=== PATIENT | female | born 1995 | race Caucasian/White ===

== ENCOUNTER 2021-07-12 21:27 | Emergency (ER) | payer BC ==
[~2021-07-12] VITALS: Ht 162.6 cm; Wt 65.8 kg
--- NOTE | 2021-07-12 22:00 | NUR ---
First contact with pt. Pt states " I started having sudden chest pain today out of nowhere and the pain is getting worst. Pt sitting in gurney and appears visibly distressed, pt fidgety and unable to sit still. At present supercharger mechanic and fitness technician at bedside attempting an EKG. Pt VSS, awaiting evaluation and furhter orders.
[2021-07-12 22:20] VITALS: BP_SYST 152
[2021-07-12 22:29] VITALS: BP_SYST 141
[2021-07-12] MEDS ORDERED: MORPHINE 2 MG/ML INJ. SYRINGE IVP ONE (22:45)
[2021-07-12] MEDS ORDERED: PROCHLORPERAZINE EDISYLATE 10 MG/2 ML VIAL IVP ONE (22:45)
[2021-07-12] MEDS ORDERED: ASPIRIN 81 MG TAB.CHEW PO ONE (22:45)
[2021-07-12] MEDS ORDERED: KETOROLAC TROMETHAMINE 30 MG VIAL IVP ONE (22:45)
[2021-07-12] MEDS ORDERED: LORazepam 2 MG/ML VIAL IVP ONE (22:45)
[2021-07-12] MEDS ORDERED: NACL 0.9% 1,000 ML IV ONE (22:45)
[2021-07-12 23:35] LABS: BASOPHILS % (AUTO) 0.6 % (0.0-2.0); EOSINOPHILS # (AUTO) 0.1 K/uL (0.0-0.4); EOSINOPHILS % (AUTO) 1.7 % (0.0-4.0); HEMATOCRIT 42.6 % (36-48); HEMOGLOBIN 14.6 g/dL (12.0-16.0); LYMPHOCYTES # (AUTO) 2.4 K/uL (1.0-5.5); LYMPHOCYTES % (AUTO) 32.6 % (20.5-51.5); MEAN CORPUSCULAR HEMOGLOBIN 33 pg (27-31); MEAN CORPUSCULAR HGB CONC 34 % (32-36); MEAN CORPUSCULAR VOLUME 96 fL (79.0-98.0); MONOCYTES # (AUTO) 0.7 K/uL (0.0-1.0); MONOCYTES % (AUTO) 9.9 % (1.7-9.3); NEUTROPHILS # (AUTO) 4.1 K/uL (1.8-7.7); NEUTROPHILS % (AUTO) 55.2 % (40.0-70.0); PLATELET COUNT (AUTO) 343 K/uL (130-430); RED BLOOD CELL COUNT(AUTO) 4.46 MIL/uL (4.2-6.2); RED CELL DISTRIBUTION WIDTH 13.2 % (9.0-15.0); WHITE BLOOD COUNT (AUTO) 7.4 K/uL (4.8-10.8)
--- NOTE | 2021-07-12 23:37 | NUR ---
Pt laying in [facility] quietly. VSS. LALA
[2021-07-13 00:28] LABS: ALANINE AMINOTRANSFERASE 18 U/L (12-78); ALBUMIN 4.2 g/dL (3.4-4.8); ANION GAP 12 (5-15); ASPARTATE AMINOTRANSFERASE 13 U/L (10-37); CALCIUM 8.6 mg/dL (8.4-11.0); CHLORIDE 103 mmol/L (98-107); CREATININE 0.65 mg/dL (0.55-1.30); GLUCOSE 95 mg/dL (70-99); POTASSIUM 3.4 mmol/L (3.5-5.1); SODIUM SERUM 137 mmol/L (136-145); TOTAL BILIRUBIN 0.4 mg/dL (0.0-1.0); UREA NITROGEN, BLOOD 4 mg/dL (8-21)
[2021-07-13 00:32] LABS: GFR AFRICAN AMERICAN 143 mL/min (>90)
[2021-07-13] MEDS ORDERED: ACET12.55 PO (01:06)
[2021-07-13] MEDS ORDERED: NAPR-686 PO (01:06)
[2021-07-13 01:16] LABS: BILIRUBIN,URINE NEGATIVE (NEGATIVE); BLOOD, URINE 3+ (NEGATIVE); CLARITY/URINE CLEAR (CLEAR); COLOR,URINE YELLOW (YELLOW); GLUCOSE,URINE NEGATIVE (NEGATIVE); KETONES,URINE NEGATIVE (NEGATIVE); LEUKOCYTE ESTERASE ,URINE TRACE (NEGATIVE); NITRITE, URINE NEGATIVE (NEGATIVE); PROTEIN URINE NEGATIVE (NEGATIVE); UROBILINOGEN,URINE 0.2 (0.2-1.0)
--- NOTE | 2021-07-13 01:45 | NUR ---
Pt laying in [facility] with eyes closed. MARISSAN. ANGIES
[2021-07-13 02:14] LABS: BACTERIA,URINE None Seen /HPF (None Seen); WBC,URINE 50-80 /HPF (0-3)
[2021-07-13 02:15] LABS: MUCUS,URINE None Seen /LPF (None Seen)
[2021-07-13 02:22] VITALS: BP_SYST 137
--- NOTE | 2021-07-13 02:22 | NUR ---
Patient given written and verbal discharge instructions and verbalizes understanding. ER MD discussed with patient the results and treatment provided. Patient in stable condition. ID arm band removed. IV catheter removed intact and dressing applied, no active bleeding. Rx of NAPROXYN, TYLENOL CODEINE given. Patient educated on pain management and to follow up with PMD. Pain Scale . Opportunity for questions provided and answered. Medication side effect fact sheet provided.
== END 2021-07-13 02:22 | disposition home or self-care (01) ==
LOC: SED 21:27
DX: R07.89 Other chest pain (principal); Z79.899 Other long term (current) drug therapy
CPT/HCPCS: 36415; 71045; 80053; 81000; 84484; 85025; 85379; 93005; 96361; 96374; 96375; 99285; J0780; J1885; J2060; J2270; J7030